=== PATIENT | male | born 1990 | race Native Hawaiian/Other Pacific Islander ===

== ENCOUNTER 2020-07-29 13:53 | Outpatient (CLI) | payer BC | END 2020-07-29 19:40 | disposition home or self-care (01) | LOC: MAMMO 13:53 | PROVIDERS: ATTEND Nurse Practitioner Family | DX: N64.59 Other signs and symptoms in breast (principal) ==

== ENCOUNTER 2021-04-04 10:07 | Outpatient (CLI) | payer BC | END 2021-04-04 21:59 | disposition home or self-care (01) | LOC: MAMMO 10:07 | PROVIDERS: ATTEND Internal Medicine | DX: N64.59 Other signs and symptoms in breast (principal); Z12.31 Encounter for screening mammogram for malignant neoplasm of breast | CPT/HCPCS: G0279 ==